=== PATIENT | female | born 1950 | race Caucasian/White ===

== ENCOUNTER 2016-07-15 02:31 | Emergency (ER) | payer MEDICARE ==
[2016-07-15 02:51] VITALS: PULSE 88; RESP 18; TEMP 97.9; O2SAT 99
--- NOTE | 2016-07-15 03:49 | C.PDOC ---
History Of Present Illness 65 y/o female, with history of seasonal allergies, currently on Jena and Flonase, presents to ED with complaint of being unable to breathe from her nose. Patient states she is no longer having relief of allergy symptoms with current medications. Otherwise, denies headache, cough, fever, or dizziness. Time Seen by Provider: 07/15/16 02:54 Chief Complaint (Nursing): Cough, Cold, Congestion History Per: Patient History/Exam Limitations: no limitations Onset/Duration Of Symptoms: Days Current Symptoms Are (Timing): Still Present Location Of Pain: None Sick Contacts (Context): None Associated Symptoms: Nasal Congestion. denies: Fever, Chills, Cough, Neck Pain , Vomiting, Diarrhea Ear Symptoms: Bilateral: None Recent travel outside of the [place]: No Past Medical History Reviewed: Historical Data, Nursing Documentation, Vital Signs Vital Signs: Last Vital Signs Temp 97.9 F 07/15/16 02:44 Pulse 88 07/15/16 02:44 Resp 18 07/15/16 02:44 BP 150/90 07/15/16 03:59 Pulse Ox 99 07/15/16 04:28 - Medical History Other PMH: seasonal allergies Family History: States: Unknown Family Hx - Social History Hx Alcohol Use: No Hx Substance Use: No - Immunization History Hx Tetanus Toxoid Vaccination: No Hx Influenza Vaccination: No Hx Pneumococcal Vaccination: No Review Of Systems Except As Marked, All Systems Reviewed And Found Negative. Constitutional: Negative for: Fever, Chills ENT: Positive for: Nose Congestion. Negative for: Mouth Swelling, Throat Pain Cardiovascular: Negative for: Chest Pain Respiratory: Negative for: Cough, Shortness of Breath, Wheezing Gastrointestinal: Negative for: Nausea, Vomiting, Abdominal Pain Skin: Negative for: Rash Neurological: Negative for: Headache, Dizziness Physical Exam - Physical Exam Appears: Non-toxic, No Acute Distress Skin: Normal Color, Warm, Dry Head: Atraumatic, Normacephalic, Tenderness (frontal sinuses) Eye(s): bilateral: Normal Inspection, PERRL, EOMI Ear(s): Bilateral: Normal Nose: Discharge (clear), No Epistaxis, No Septal Hematoma, Other (enlarged bilateral nasal turbinates, R>L ) Oral Mucosa: Moist Lips: Normal Appearing, No Swelling Throat: Normal, No Erythema, No Exudate, No Drooling Neck: Supple, No Other (swelling) Chest: Symmetrical Cardiovascular: Rhythm Regular Respiratory: Normal Breath Sounds, No Accessory Muscle Use, No Rales, No Rhonchi , No Wheezing Extremity: Normal ROM Neurological/Psych: Oriented x3, Normal Speech, Normal Cognition ED Course And Treatment O2 Sat by Pulse Oximetry: 99 (RA) Pulse Ox Interpretation: Normal Progress Note: Treated with Benadryl IM, PO prednisone. On reassessment, patient is resting comfortably, and is in no acute distress. Advised to continue with prescribed Zyrtec D, advised to discontinue Flonase and Jena. Patient instructed to follow up with clinic/PMD within 1-2 days. 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 - Scribe Statement The provider has reviewed the documentation as recorded by the Della Phipps Provider Scribe Attestation: All medical record entries made by the Scribe were at my direction and personally dictated by me. I have reviewed the chart and agree that the record accurately reflects my personal performance of the history, physical exam, medical decision making, and the department course for this patient. I have also personally directed, reviewed, and agree with the discharge instructions and disposition.
[2016-07-15 04:00] VITALS: BP 150/90
== END 2016-07-15 04:00 | disposition home or self-care (01) ==
LOC: MERGE 02:31 → C.ER 02:31
DX: J30.9 Allergic rhinitis, unspecified (principal)

== ENCOUNTER 2017-03-18 11:51 | Emergency (ER) | payer MEDICARE ==
[2017-03-18 12:11] VITALS: BP 124/85; PULSE 90; RESP 20; TEMP 98.2; O2SAT 99
[2017-03-18 12:12] VITALS: BMI 23.6
[2017-03-18] MEDS ORDERED: guaiFENesin 100 mg/5 ml Syrup UD PO STA (13:02)
--- NOTE | 2017-03-18 13:04 | C.PDOC ---
History Of Present Illness 66 y/o female presents to the ER complaining of nasal congestion, dry non- productive cough, body aches, and subjective fever which has been present for the past week. Patient reports that she occasionally takes Dayquil, Robitussin, and Tylenol which do not provide any relief. Patient does not have any other medical complaints. Time Seen by Provider: 03/18/17 12:56 Chief Complaint (Nursing): Cough, Cold, Congestion History Per: Patient History/Exam Limitations: no limitations Onset/Duration Of Symptoms: Days Current Symptoms Are (Timing): Still Present Associated Symptoms: Fever (subjective fever), Cough, Nasal Congestion Past Medical History Reviewed: Historical Data, Nursing Documentation, Vital Signs Vital Signs: Last Vital Signs Temp 98.2 F 03/18/17 12:10 Pulse 90 03/18/17 12:10 Resp 20 03/18/17 12:10 BP 124/85 03/18/17 12:10 Pulse Ox 99 03/18/17 13:04 - Medical History PMH: No Chronic Diseases Surgical History: Tonsillectomy Family History: States: No Known Family Hx - Social History Hx Alcohol Use: No Hx Substance Use: No - Immunization History Hx Tetanus Toxoid Vaccination: No Hx Influenza Vaccination: No Hx Pneumococcal Vaccination: No Review Of Systems Except As Marked, All Systems Reviewed And Found Negative. Constitutional: Positive for: Fever (subjective fever), Malaise. Negative for: Chills ENT: Positive for: Nose Congestion Respiratory: Positive for: Cough (dry, non-productive cough) Gastrointestinal: Negative for: Nausea, Vomiting, Diarrhea Physical Exam - Physical Exam Appears: Non-toxic, No Acute Distress Skin: Normal Color, Warm Head: Atraumatic, Normacephalic Eye(s): bilateral: Normal Inspection, PERRL Ear(s): Bilateral: Normal Nose: Discharge (mild nasal congestion) Oral Mucosa: Moist Throat: Normal, No Erythema, No Exudate Neck: Supple Chest: Symmetrical Cardiovascular: Rhythm Regular Respiratory: Normal Breath Sounds, No Accessory Muscle Use Extremity: Normal ROM Neurological/Psych: Oriented x3, Normal Speech, Normal Cognition, Normal Motor, Normal Sensation ED Course And Treatment O2 Sat by Pulse Oximetry: 99 (RA) Pulse Ox Interpretation: Normal Progress Note: gurpreet greenberg Medical Decision Making Medical Decision Making: typical viral syndrome, LOW susp of influenza stable VS's. Plan: --Robitussin 100 mg PO --Motrin 600 mg PO Disposition Doctor Will See Patient In The: Office Counseled Patient/Family Regarding: Studies Performed, Diagnosis - Disposition Referrals: Jose Zelaya MD [Staff Provider] - Disposition: HOME/ ROUTINE Disposition Time: 13:04 Condition: GOOD Additional Instructions: sigue Dayquil zachary el jack y Nyquil zachary la noche para las s[place] gri[place] jimena muchos liquidos. Sigue con Dr. Zelaya vishal necessario Las s[place] gri[place] se magu[place] approx 2 semanas. Instructions: Viral Syndrome (ED) Forms: [employer] (Yi) Print Language: [id number] - Clinical Impression Clinical Impression: Viral syndrome - Scribe Statement The provider has reviewed the documentation as recorded by the Scribe Nancy Contreras Provider Attestation: All medical record entries made by the Scribe were at my direction and personally dictated by me. I have reviewed the chart and agree that the record accurately reflects my personal performance of the history, physical exam, medical decision making, and the department course for this patient. I have also personally directed, reviewed, and agree with the discharge instructions and disposition.
[2017-03-18] MEDS ORDERED: guaiFENesin 100 mg/5 ml Syrup UD ONE (13:08)
== END 2017-03-18 13:11 | disposition home or self-care (01) ==
LOC: C.ER 11:51
DX: B34.9 Viral infection, unspecified (principal)